=== PATIENT | male | born 1965 | race Caucasian/White ===

== ENCOUNTER 2017-06-20 00:47 | Emergency (ER) | payer BC ==
[2017-06-20] MEDS ORDERED: Sodium Chloride 0.9% 1000 ML 1,000 ML IV STA ×2 (01:14→02:36)
[2017-06-20] MEDS ORDERED: Zofran 4 MG/2 ML VIAL IV ONE (01:14)
--- NOTE | 2017-06-20 01:21 | ERPHSYRPT ---
- History of Present Illness Time Seen by Provider: 06/20/17 01:14 Historian: patient Exam Limitations: no limitations Patient Subjective Stated Complaint: Emesis Triage Nursing Assessment: Pt presents to the ED with complaints of emesis that began at approximately 1830 after eating. Pt states he has vomitied x6 times since onset. Pt denies pain or other complaints at this time. Pt is A&O x4, no distress noted. Physician History: Pt started c/o nausea, vomiting multiple times, diarrhea at 18:00 Pm tonight, denies pain, shortness of breath, cough, sore throat, fever other complaints. Timing/Duration: hour(s) (6), intermittent Activities at Onset: none Quality: aching Abdominal Pain Onset Location: other (denies) Pain Radiation: no radiation Severity of Pain-Max: none Severity of Pain-Current: none Modifying Factors: Improves With: nothing Associated Symptoms: diarrhea, nausea, vomiting Previous symptoms: no prior history Allergies/Adverse Reactions: cephalexin [From Keflex] Allergy (Mild, Verified 06/20/17 01:02) Hives oxycodone Allergy (Mild, Verified 06/20/17 01:02) iodine Allergy (Verified 04/05/16 00:08) Home Medications: Atenolol 25 mg BID 04/05/16 [History] Buprenorphine HCl [Belbuca] 150 mcg BC BID 04/05/16 [History] Enalapril Maleate [Vasotec] 20 mg BID 04/05/16 [History] Testosterone Cypionate [Depo-Testosterone] 04/05/16 [History] Doxycycline Hyclate 100 mg [Vibramycin 100 MG] 100 mg PO 06/20/17 [History ] Hx Tetanus, Diphtheria Vaccination/Date Given: Yes Hx Influenza Vaccination/Date Given: No Hx Pneumococcal Vaccination/Date Given: No Immunizations Up to Date: Yes - Review of Systems Constitutional: No Symptoms Abdominal/Gastrointestinal: Nausea, Vomiting, Diarrhea All Other Systems: Reviewed and Negative - Past Medical History Pertinent Past Medical History: Yes Cardiac History: Hypertension Other Medical History: LOW TESTOSERONE LEVEL -HISTORY OF EPIDIDIMYTIS - CURRENTLY BEING TREATED WITH BACTRIM DS ON DAY 5 - Past Surgical History Past Surgical History: Yes Musculoskeletal: Other Other Surgical History: back surgery - Social History Smoking Status: Never smoker Exposure to second hand smoke: No Drug Use: none Patient Lives Alone: No - Nursing Vital Signs Nursing Vital Signs: Initial Vital Signs Pulse Rate 97 H 06/20/17 00:56 Respiratory Rate 16 06/20/17 00:56 Blood Pressure 178/107 06/20/17 00:56 O2 Sat by Pulse Oximetry 95 06/20/17 00:56 Pain Scale Pain Intensity 0 - Physical Exam General Appearance: no apparent distress Eye Exam: eyes nml inspection Ears, Nose, Throat Exam: normal ENT inspection, pharynx normal Neck Exam: normal inspection, non-tender, supple, No JVD Respiratory Exam: normal breath sounds, lungs clear, No chest tenderness Cardiovascular Exam: regular rate/rhythm, normal heart sounds, normal peripheral pulses, No murmur Gastrointestinal/Abdomen Exam: soft, normal bowel sounds, No tenderness, No distention, No mass, No guarding, No ecchymosis, No hernia Back Exam: normal inspection, No CVA tenderness Extremity Exam: normal inspection Neurologic Exam: alert, oriented x 3, cooperative, normal mood/affect Skin Exam: normal color, warm, dry, No rash Lymphatic Exam: No adenopathy SpO2 Interpretation: normal SpO2: 95 Oxygen Delivery: Room Air - Course Nursing assessment & vital signs reviewed: Yes EKG Interpreted by Me: RATE (94/min), NORMAL AXIS, NORMAL INTERVALS, Right Bundle Branch Block, Non-specific ST Changes - Radiology Exams Abdomen X-ray Interpretation: Interpreted by me, Negative - CT Exams Abdomen/Pelvis CT Interpretation: Negative Ordered Tests: Active Orders 24 hr Category Date Time Status EKG-ER Only STAT Care 06/20/17 01:14 Active IV Insertion STAT Care 06/20/17 01:14 Active NPO (ED) STAT Care 06/20/17 01:14 Active ABDOMEN AND PELVIS W/0 CONTRAS [CT] Stat Exams 06/20/17 02:36 Taken OBSTR/ACUTE ABDOMEN SERIES Stat Exams 06/20/17 01:14 Taken CBC W DIFF Stat Lab 06/20/17 01:20 Completed CMP Stat Lab 06/20/17 01:20 Completed LIPASE Stat Lab 06/20/17 01:20 Completed Lactic Acid Stat Lab 06/20/17 01:14 Completed Manual Differential NC Stat Lab 06/20/17 01:20 Completed TROPONIN Q3H Lab 06/20/17 01:20 Completed TROPONIN Q3H Lab 06/20/17 04:15 Ordered TROPONIN Q3H Lab 06/20/17 07:15 Ordered TROPONIN Q3H Lab 06/20/17 10:15 Ordered TROPONIN Q3H Lab 06/20/17 13:15 Ordered UA W/RFX UR CULTURE Stat Lab 06/20/17 02:41 Completed Medication Summary Generic Name Dose Route Start Last Admin Trade Name Freq PRN Reason Stop Dose Admin Acetaminophen 1,000 mg 06/20/17 02:12 06/20/17 02:23 Tylenol Extra Strength 500 Mg PO 07/20/17 02:11 1,000 mg Q4H PRN PRN Administration HEADACHE Discontinued Medications Generic Name Dose Route Start Last Admin Trade Name Freq PRN Reason Stop Dose Admin Sodium Chloride 1,000 mls @ 999 mls/hr 06/20/17 01:14 06/20/17 01:30 Sodium Chloride 0.9% 1000 Ml IV 06/20/17 02:14 999 mls/hr .Q1H1M STA Administration Sodium Chloride Confirm 06/20/17 01:25 Sodium Chloride 0.9% 1000 Ml Administered 06/20/17 01:26 Dose 1,000 mls @ ud .ROUTE .STK-MED ONE Sodium Chloride 1,000 mls @ 999 mls/hr 06/20/17 02:36 06/20/17 03:03 Sodium Chloride 0.9% 1000 Ml IV 06/20/17 03:36 999 mls/hr .Q1H1M STA Administration Sodium Chloride Confirm 06/20/17 03:02 Sodium Chloride 0.9% 1000 Ml Administered 06/20/17 03:03 Dose 1,000 mls @ ud .ROUTE .STK-MED ONE Ondansetron HCl 4 mg 06/20/17 01:14 06/20/17 01:31 Zofran 4 Mg/2 Ml Vial IV 06/20/17 01:15 4 mg STAT ONE Administration Ondansetron HCl Confirm 06/20/17 01:25 Zofran 4 Mg/2 Ml Vial Administered 06/20/17 01:26 Dose 4 mg .ROUTE .STK-MED ONE Lab/Rad Data: Laboratory Result Diagrams 06/20/17 01:20 06/20/17 01:20 Laboratory Results 06/20/17 06/20/17 06/20/17 Range/Units 02:41 01:31 01:20 WBC (4.0-10.5) K/mm3 RBC (4.1-5.6) M/mm3 Hgb (12.5-18.0) gm/dl Hct (42-50) % MCV (78-100) fl MCH (26-32) pg MCHC (32-36) g/dl RDW (11.5-14.0) % Plt Count (150-450) K/mm3 MPV (6-9.5) fl Segmented Neutrophils (36.-66.) % Band Neutrophils (0.0-2.0) % Lymphocytes (Manual) (24-44) % Monocytes (Manual) (0.0-12.0) % Eosinophils (Manual) (0.00-3.0) % Differential Comment Platelet Estimate (NORMAL) Sodium (136-145) mEq/L Potassium (3.5-5.1) mEq/L Chloride (98-107) mEq/L Carbon Dioxide (21-32) mEq/L Anion Gap (5-15) MEQ/L BUN (9-20) mg/dL Creatinine (0.55-1.30) mg/dl Estimated GFR ML/MIN Glucose (70-110) MG/DL Lactic Acid (0.4-2.0) Calcium (8.5-10.1) mg/dL Total Bilirubin (0.2-1.0) mg/dL AST (15-37) U/L ALT (12-78) U/L Alkaline Phosphatase (46-116) U/L Troponin I < 0.017 (0.000-0.056) ng/ml Serum Total Protein (6.4-8.2) gm/dL Albumin (3.4-5.0) g/dL Lipase (73-393) U/L Ur Collection Type VOID Urine Color YELLOW (YELLOW) Urine Appearance CLEAR (CLEAR) Urine pH 5.0 (5-6) Ur Specific Drury 1.010 (1.005-1.025) Urine Protein NEGATIVE (Negative) Urine Ketones SMALL (NEGATIVE) Urine Blood NEGATIVE (0-5) Ruddy/ul Urine Nitrite NEGATIVE (NEGATIVE) Urine Bilirubin NEGATIVE (NEGATIVE) Urine Urobilinogen NORMAL (0-1) mg/dL Ur Leukocyte Esterase NEGATIVE (NEGATIVE) Urine Culture Reflexed NO (NO) Urine Glucose NEGATIVE (NEGATIVE) mg/dL Influenza Type A Ag NEGATIVE (NEGATIVE) Influenza Type B Ag NEGATIVE (NEGATIVE) RSV (PCR) NEGATIVE (Negative) Specimen Received 06/20/17 0240 06/20/17 06/20/17 06/20/17 Range/Units 01:20 01:20 01:14 WBC 10.9 H (4.0-10.5) K/mm3 RBC 5.35 (4.1-5.6) M/mm3 Hgb 16.7 (12.5-18.0) gm/dl Hct 49.5 (42-50) % MCV 92.5 (78-100) fl MCH 31.2 (26-32) pg MCHC 33.7 (32-36) g/dl RDW 12.0 (11.5-14.0) % Plt Count 162 (150-450) K/mm3 MPV 11.6 H (6-9.5) fl Segmented Neutrophils 86 H (36.-66.) % Band Neutrophils 3 H (0.0-2.0) % Lymphocytes (Manual) 6 L (24-44) % Monocytes (Manual) 4 (0.0-12.0) % Eosinophils (Manual) 1 (0.00-3.0) % Differential Comment NORMAL Platelet Estimate NORMAL (NORMAL) Sodium 140 (136-145) mEq/L Potassium 4.0 (3.5-5.1) mEq/L Chloride 104 (98-107) mEq/L Carbon Dioxide 27.6 (21-32) mEq/L Anion Gap 11.9 (5-15) MEQ/L BUN 11 (9-20) mg/dL Creatinine 1.38 H (0.55-1.30) mg/dl Estimated GFR 58 ML/MIN Glucose 121 H (70-110) MG/DL Lactic Acid 1.3 (0.4-2.0) Calcium 8.7 (8.5-10.1) mg/dL Total Bilirubin 1.00 (0.2-1.0) mg/dL AST 33 (15-37) U/L ALT 33 (12-78) U/L Alkaline Phosphatase 64 (46-116) U/L Troponin I (0.000-0.056) ng/ml Serum Total Protein 7.1 (6.4-8.2) gm/dL Albumin 3.7 (3.4-5.0) g/dL Lipase 210 (73-393) U/L Ur Collection Type Urine Color (YELLOW) Urine Appearance (CLEAR) Urine pH (5-6) Ur Specific Drury (1.005-1.025) Urine Protein (Negative) Urine Ketones (NEGATIVE) Urine Blood (0-5) Ruddy/ul Urine Nitrite (NEGATIVE) Urine Bilirubin (NEGATIVE) Urine Urobilinogen (0-1) mg/dL Ur Leukocyte Esterase (NEGATIVE) Urine Culture Reflexed (NO) Urine Glucose (NEGATIVE) mg/dL Influenza Type A Ag (NEGATIVE) Influenza Type B Ag (NEGATIVE) RSV (PCR) (Negative) Specimen Received - Progress Progress: improved Progress Note: 06/20/17 04:08 Improved, feels better, fever resolved, not nauseated. I informed patient and his about CT result and labs, he is going to be discharged in a good condition advised liquid diet and follow up with his doctor next week. All questions answered. - Departure Time of Disposition: 04:09 Departure Disposition: Home Clinical Impression: Gastroenteritis Condition: Stable Critical Care Time: No Referrals: CHARLENE LIPSCOMB [Primary Care Provider] - Instructions: Vomiting -- Adult, Viral Gastroenteritis Additional Instructions: Rest x 2-3 days, continue liquid diet, return if severe pain, vomiting, fever> 102 F! Prescriptions: Ondansetron ODT 4 MG [Zofran Odt 4 mg] 4 mg PO Q6H PRN PRN 5 Days #10 tab.rapdis PRN Reason: Nausea/Vomiting
[2017-06-20 01:25] LABS: Granulocyte Absolute (ANC) 9.63 (1.4-6.9); Hematocrit 49.5 % (42-50); Hemoglobin 16.7 gm/dl (12.5-18.0); Mean Cell Volume 92.5 fl (78-100); Mean Corpuscular Hemoglobin 31.2 pg (26-32); Mean Corpuscular Hgb Concent. 33.7 g/dl (32-36); Mean Platelet Volume 11.6 fl (6-9.5); Platelet Count 162 K/mm3 (150-450); Red Blood Count 5.35 M/mm3 (4.1-5.6); White Blood Count 10.9 K/mm3 (4.0-10.5)
[2017-06-20] MEDS ORDERED: Zofran 4 MG/2 ML VIAL ONE (01:25)
[2017-06-20] MEDS ORDERED: Sodium Chloride 0.9% 1000 ML 1,000 ML ONE ×2 (01:25→03:02)
[2017-06-20 01:47] LABS: ALBUMIN 3.7 g/dL (3.4-5.0); ANION GAP 11.9 MEQ/L (5-15); Calcium 8.7 mg/dL (8.5-10.1); Carbon Dioxide 27.6 mEq/L (21-32); Creatinine 1 1.38 mg/dl (0.55-1.30); Total Protein 7.1 gm/dL (6.4-8.2)
[2017-06-20] MEDS ORDERED: TYLENOL EXTRA STRENGTH 500 MG PO PRN (02:12)
[2017-06-20] MEDS ORDERED: TYLENOL EXTRA STRENGTH 500 MG ONE (02:23)
[2017-06-20 02:33] LABS: INFLUENZA A NEGATIVE (NEGATIVE); INFLUENZA B NEGATIVE (NEGATIVE); RESPIRATORY SYNCTIAL VIRUS NEGATIVE (Negative)
[2017-06-20 02:36] LABS: BAND 3 % (0.0-2.0); Eosinophil 1 % (0.00-3.0); Lymphocytes 6 % (24-44); Monocyte 4 % (0.0-12.0); Neutrophils 86 % (36.-66.); Platelet Estimate NORMAL (NORMAL); Total Cells Counted 100
[2017-06-20 02:45] LABS: Appearance CLEAR (CLEAR); Bilirubin NEGATIVE (NEGATIVE); Blood NEGATIVE Ery/ul (0-5); Glucose NEGATIVE (NEGATIVE); Ketones SMALL (NEGATIVE); Leukocyte Esterase NEGATIVE (NEGATIVE); Nitrite NEGATIVE (NEGATIVE); Protein,Urine Dip NEGATIVE (Negative); Urobilinogen NORMAL mg/dL (0-1)
[2017-06-20 04:11] VITALS: BP 142/70; PULSE 105; O2SAT 95
--- NOTE | 2017-06-20 08:09 | XRAY ---
Indication: Nausea, vomiting, and fever. Multiple contiguous axial images obtained through the abdomen and pelvis without contrast as ordered. Comparison: CT abdomen April 16, 2010. Lung bases demonstrates minimal bibasilar fibrosis/scarring. No infiltrate or effusion. Heart is not enlarged. There has been interval lumbosacral junction fusion surgery with posterior spinal hardware producing beam artifact limiting these levels. Noncontrasted stomach and bowel loops appear nonobstructed. There are mild fluid distended small bowel loops with some fluid leveling, ileus versus enteritis. Normal appendix. No free fluid/air. There are again 2 small round hepatic hypodense lesions probable cysts. Remaining liver, pancreas, spleen, adrenal glands, kidneys, ureters, bladder, and aorta appear unremarkable for noncontrast exam. Osseous structures intact with stable L5 grade 1 spondylolisthesis. Impression: 1. Mild fluid distended small bowel loops with fluid leveling, ileus versus enteritis. 2. Stable hepatic cysts. 3. Interval L5-S1 fusion surgery with stable grade 1 spondylolisthesis. Comment: Preliminary interpretation was made by [facility]. No critical discrepancy. CTDI 28.13
--- NOTE | 2017-06-20 08:11 | XRAY ---
Indication: Vomiting and diarrhea. Comparison: Chest exam April 05, 2016. 2 views of the abdomen demonstrates nonspecific nonobstructed bowel gas pattern with minimal small bowel fluid leveling. No focal bowel dilatation or free air. Solid organs unremarkable. Osseous structures intact with lumbosacral fusion surgery and laminectomy. Single frontal chest demonstrates normal heart, lungs, and bony thorax. Impression: Nonacute nonobstructed abdomen. Normal 1 view chest.
== END 2017-06-20 04:31 | disposition home or self-care (01) ==
LOC: ED 00:47
DX: K52.9 Noninfective gastroenteritis and colitis, unspecified (principal); Z79.899 Other long term (current) drug therapy
CPT/HCPCS: 36000; 36415; 74022; 74176; 80053; 81002; 83605; 83690; 84484; 85025; 87631; 93005; 96360; 96361; 96374; 99284; J2405; A9270-GY

== ENCOUNTER 2021-05-06 07:24 | Emergency (ER) | payer BC ==
--- NOTE | 2021-05-06 07:40 | ERPHSYRPT ---
- History of Present Illness Time Seen by Provider: 05/06/21 07:40 Source: patient Exam Limitations: no limitations Patient Subjective Stated Complaint: pt c/o of covid s/s with a known exposure Triage Nursing Assessment: pt is aox3, pupils perrl, afebrile, resps easy and non labored, cap refill < 3 seconds, pt skin pink warm dry, pt appears in no distress. Physician History: This is a 55-year-old white male with a history of hypertension and sees Dr. Grimes in pain clinic who presents with 1 week history of cough sore throat muscle aches and pains. He has not been vaccinated against COVID-19 virus. He has had exposure with someone who is known to have COVID-19 infection. Patient denies chest pain. He denies abdominal pain he has not had any nausea vomiting or diarrhea. His spouse has similar symptoms. Timing/Duration: week(s) (1) Cough Quality/Degree: mild (To moderate), dry cough Possible Cause: no prior episodes Modifying Factors: Improves With: coughing Associated Symptoms: cough, sore throat, No fever, No chills, No chest pain/soreness Allergies/Adverse Reactions: cephalexin [From Keflex] Allergy (Mild, Verified 05/06/21 07:35) Hives oxycodone Allergy (Mild, Verified 05/06/21 07:35) iodine Allergy (Verified 05/06/21 07:35) Home Medications: Buprenorphine HCl [Belbuca] 150 mcg BC BID 04/05/16 [History] Enalapril Maleate [Vasotec] 20 mg BID 04/05/16 [History] Testosterone Cypionate [Depo-Testosterone] 200 mg IM UD 04/05/16 [History] atenoloL [Atenolol] 25 mg BID 04/05/16 [History] Doxycycline Hyclate 100 mg [Vibramycin 100 MG] 100 mg PO BID 06/20/17 [History] Hx Tetanus, Diphtheria Vaccination/Date Given: Yes Hx Influenza Vaccination/Date Given: No Hx Pneumococcal Vaccination/Date Given: No Immunizations Up to Date: Yes Travel Risk - International Travel Have you traveled outside of the country in past 3 weeks: No - Coronavirus Screening Are you exhibiting any of the following symptoms?: Yes Symptoms: Fever, Cough: New Onset, Headaches/Body Aches/Fatigue Close contact with a COVID-19 positive Pt in past 14-21 Days: Yes - Vaccine Status Have you recieved a Covid-19 vaccination: No - Review of Systems Constitutional: No Symptoms Eyes: No Symptoms Ears, Nose, & Throat: Throat Pain Respiratory: Cough Cardiac: No Symptoms Abdominal/Gastrointestinal: No Symptoms Genitourinary Symptoms: No Symptoms Musculoskeletal: Arthralgias, Myalgias Skin: No Symptoms Neurological: No Symptoms Psychological: No Symptoms Endocrine: No Symptoms Hematologic/Lymphatic: No Symptoms Immunological/Allergic: No Symptoms All Other Systems: Reviewed and Negative - Past Medical History Pertinent Past Medical History: Yes Cardiac History: Hypertension Other Medical History: LOW TESTOSERONE LEVEL -HISTORY OF EPIDIDIMYTIS -CURRENTLY BEING TREATED WITH BACTRIM DS ON DAY 5 - Past Surgical History Past Surgical History: Yes Musculoskeletal: Other Other Surgical History: back surgery - Social History Smoking Status: Never smoker Exposure to second hand smoke: No Drug Use: none Patient Lives Alone: No - Nursing Vital Signs Nursing Vital Signs: Initial Vital Signs Temperature 98.3 F 05/06/21 07:29 Pulse Rate 62 05/06/21 07:29 Respiratory Rate 16 05/06/21 07:29 Blood Pressure 160/92 05/06/21 07:29 O2 Sat by Pulse Oximetry 98 05/06/21 07:29 Pain Scale Pain Intensity 4 - Physical Exam General Appearance: no apparent distress, alert, anxiety Eye Exam: PERRL/EOMI, eyes nml inspection Ears, Nose, Throat Exam: normal ENT inspection, moist mucous membranes Neck Exam: normal inspection, non-tender, supple, full range of motion Respiratory Exam: normal breath sounds, lungs clear, airway intact, No chest tenderness, No respiratory distress Cardiovascular Exam: regular rate/rhythm, normal heart sounds, normal peripheral pulses Gastrointestinal/Abdomen Exam: soft, normal bowel sounds, No tenderness Rectal Exam: not done Back Exam: normal inspection, normal range of motion, No CVA tenderness, No vertebral tenderness Extremity Exam: normal inspection, normal range of motion, pelvis stable Neurologic Exam: alert, oriented x 3, cooperative, aerial advertiser II-XII nml as tested, normal mood/affect, nml cerebellar function, nml station & gait, sensation nml Skin Exam: normal color, warm, dry Lymphatic Exam: No adenopathy SpO2 Interpretation: normal SpO2: 98 O2 Delivery: Room Air - Course Nursing assessment & vital signs reviewed: Yes Ordered Tests: Active Orders 24 hr Category Date Time Status Isolation, Initiate & Maintain STAT Care 05/06/21 07:44 Active Pulse Oximetry (ED) STAT Care 05/06/21 07:44 Active CHEST 1 VIEW (PORTABLE) Stat Exams 05/06/21 07:45 Completed INFLUENZA A+B FAIZAN Stat Lab 05/06/21 08:29 Completed Medication Summary Discontinued Medications Generic Name Dose Route Start Last Admin Trade Name Ariel PRN Reason Stop Dose Admin Methylprednisolone Sodium 0 mg 05/06/21 08:36 05/06/21 08:49 Succinate 125 mg/ Sterile IM 05/06/21 08:37 125 mg Water 2 ml STAT ONE Administration Methylprednisolone Sodium Succinate Confirm 05/06/21 08:38 Methylprednis Sod Succ 125 Mg/2 Ml Vial Administered 05/06/21 08:39 Dose 125 mg .ROUTE .STK-MED ONE Sterile Water Confirm 05/06/21 08:38 Water For Injection,Sterile 10 Ml Vial Administered 05/06/21 08:39 Dose 10 ml IJ .STK-MED ONE Lab/Rad Data: Laboratory Results 05/06/21 Range/Units 08:29 Influenza Type A Ag NEGATIVE (NEGATIVE) Influenza Type B Ag NEGATIVE (NEGATIVE) - Progress Progress: unchanged Air Movement: good Progress Note: 05/06/21 08:58 Chest x-ray shows no acute cardiopulmonary process. Blood Culture(s) Obtained: No Antibiotics given: No Counseled pt/family regarding: lab results, diagnosis, need for follow-up, rad results - Departure Departure Disposition: Home Clinical Impression: Upper respiratory infection Condition: Stable Critical Care Time: No Referrals: [facility] [Primary Care Provider] - Follow up/PCP as directed Additional Instructions: Drink plenty of fluids. Take your medication as prescribed. Quarantine yourself until the COVID-19 test results come back. Prescriptions: Benzonatate 200 mg PO TID PRN #10 cap PRN Reason: Cough Prednisone 10 mg [Deltasone 10 mg] 10 mg PO TID #12 tablet Azithromycin 250 mg [Zithromax 250 MG TABLET] 250 mg PO ZPACK #6 tablet
[2021-05-06] MEDS ORDERED: solu-MEDROL 125 MG, Sterile H2O 10 ml 2 ML IM ONE ×2 (08:36)
[2021-05-06] MEDS ORDERED: Sterile H2O 10 ml IJ ONE (08:38)
[2021-05-06] MEDS ORDERED: solu-MEDROL ONE (08:38)
[2021-05-06 09:16] LABS: INFLUENZA A NEGATIVE (NEGATIVE); INFLUENZA B NEGATIVE (NEGATIVE)
--- NOTE | 2021-05-06 09:21 | XRAY ---
Indication: Cough and sore throat. Suspect Covid 19. Comparison: April 05, 2016. Portable chest clear with again tiny left base calcified granuloma. Heart not enlarged. Bony thorax intact again with mild degenerative changes. Impression: Nonacute chest with chronic features.
[2021-05-06 10:17] VITALS: BP 129/68; PULSE 51; O2SAT 96
== END 2021-05-06 10:17 | disposition home or self-care (01) ==
LOC: ED 07:24
DX: J06.9 Acute upper respiratory infection, unspecified (principal); R05.9 Cough, unspecified; J02.9 Acute pharyngitis, unspecified; M79.10 Myalgia, unspecified site; Z20.822 Contact with and (suspected) exposure to COVID-19; I10 Essential (primary) hypertension; Z79.52 Long term (current) use of systemic steroids
CPT/HCPCS: 71045; 87400; 87651; 94760; 96372; 99284; U0003; J2930